=== PATIENT | female | born 1955 | race Caucasian/White ===

== ENCOUNTER → 2016-07-11 | Outpatient (CLI) | payer OTHER | END | disposition home or self-care (01) | LOC: MW.CHOBGYN 15:42 | PROVIDERS: ATTEND Nurse Practitioner Women's Health | DX: Z78.9 Other specified health status (principal) | CPT/HCPCS: 36415; 82550 ==

== ENCOUNTER 2019-03-18 08:14 | Day surgery (SDC) | payer OTHER ==
[~2019-03-18 08:14] MED LIST: Lactated Ringers 1,000 ML IV SCH; Sodium Chloride 0.9% 10 ML SDV IV PRN; Sodium Chloride 0.9% 10 ML Syringe FLUSH PRN; Sodium Chloride 0.9% 2.5 ML Syringe FLUSH PRN
--- NOTE | 2019-03-18 09:21 | PCM.PREANE ---
Preanesthetic Assessment - Anesthesia/Transfusion/Family Hx Anesthesia History: Prior Anesthesia Without Reaction Family History of Anesthesia Reaction: No Transfusion History: No Prior Transfusion(s) - Review of Systems General: No Symptoms Pulmonary: No Symptoms (uses cpap nightly 6+ hour/night) Cardiovascular: No Symptoms Gastrointestinal: No Symptoms Neurological: No Symptoms Other: Reports: None - Physical Assessment NPO Status Date: 03/17/19 NPO Status Time: 23:00 Vital Signs: Last Vital Signs Temp 97.0 F 03/18/19 08:30 Pulse 72 03/18/19 08:30 Resp 16 03/18/19 08:30 BP 119/57 L 03/18/19 08:30 Pulse Ox 95 03/18/19 08:30 Height: 5 ft 2 in Weight: 74.389 kg ASA Class: 2 Mental Status: Alert & Oriented x3 Airway Class: Mallampati = 2 Dentition: Reports: Normal Dentition ROM/Head Extension: Full Lungs: Normal Respiratory Effort Cardiovascular: Regular Rate, Regular Rhythm - Allergies Allergies/Adverse Reactions: Allergies Allergy/AdvReac Type Severity Reaction Status Date / Time atropine Allergy Shortness Verified 03/13/19 09:14 of Breath ciprofloxacin [From Cipro] Allergy Stomach Verified 03/13/19 09:14 Upset erythromycin base Allergy Stomach Verified 03/13/19 09:14 Upset phenazopyridine Allergy Abdominal Verified 03/13/19 12:44 [From Pyridium] Pain - Blood Blood Available: No - Anesthesia Plan Pre-Op Medication Ordered: None - Acknowledgements Pt an Appropriate Candidate for the Planned Anesthesia: Yes Alternatives and Risks of Anesthesia Discussed w Pt/Guardian: Yes Pt/Guardian Understands and Agrees with Anesthesia Plan: Yes PreAnesthesia Questionnaire HEENT History: Reports: Sinusitis, Other (See Below) Other HEENT History: wears glasses Cardiovascular History: Reports: High Cholesterol, Hypertension Respiratory History: Reports: Sleep Apnea Other Respiratory History: uses CPAP Gastrointestinal History: Reports: Colon Polyp, GERD, Helicobacter Pylori, Hiatal Hernia, Other (See Below) Other Gastrointestinal History: hx gastric ulcer as a teenager Genitourinary History: Reports: None 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: Musculoskeletal History: Reports: Osteoarthritis Neurological History: Reports: None Psychiatric History: Reports: Anxiety, Depression Endocrine/Metabolic History: Reports: Diabetes, Type II Hematologic History: Reports: None Immunologic History: Reports: None Oncologic (Cancer) History: Reports: None Dermatologic History: Reports: None - Past Surgical History Head Surgeries/Procedures: Reports: None HEENT Surgical History: Reports: Adenoidectomy, Tonsillectomy Cardiovascular Surgical History: Reports: None Respiratory Surgical History: Reports: None GI Surgical History: Reports: Appendectomy, Cholecystectomy, Colonoscopy, EGD Female Surgical History: Reports: Section, Hysterectomy, Tubal Ligation Endocrine Surgical History: Reports: None Neurological Surgical History: Reports: C-Spine Other Neurological Surgeries/Procedures: hx neck surgery Musculoskeletal Surgical History: Reports: Carpal Tunnel Oncologic Surgical History: Reports: None Dermatological Surgical History: Reports: None - SUBSTANCE USE Smoking Status *Q: Current Every Day Smoker Tobacco Use Within Last Twelve Months: Cigarettes Recreational Drug Use History: No - HOME MEDS Home Medications: Home Meds LORazepam 1 mg PO BEDTIME 03/15/16 [History] Lisinopril 40 mg PO DAILY 03/15/16 [History] Sertraline HCl 200 mg PO DAILY 03/15/16 [History] metFORMIN HCl [Metformin HCl] 500 mg PO PCDINNER 03/15/16 [History] Cinnamon Bark [Cinnamon] 2 tab PO DAILY 03/13/19 [History] Digestive 8/L.acidoph/Pectin [Digestive Enzymes Tablet] 1 tab PO DAILY 03/13/19 [History] Pre & Probiotic 1 tab PO DAILY 03/13/19 [History] Turmeric Root Extract [Turmeric] 500 mg PO DAILY 03/13/19 [History] - CURRENT (IN HOUSE) MEDS Current Meds: Current Medications Lactated Ringer's (Ringers, Lactated) 1,000 mls @ 125 mls/hr IV ASDIRECTED YOLANDA Last Admin: 03/18/19 08:57 Dose: 125 mls/hr Sodium Chloride (Saline Flush) 10 ml FLUSH ASDIRECTED PRN PRN Reason: Keep Vein Open Sodium Chloride (Saline Flush) 2.5 ml FLUSH ASDIRECTED PRN PRN Reason: Keep Vein Open Sodium Chloride (Saline Flush) 10 ml FLUSH ASDIRECTED PRN PRN Reason: Keep Vein Open Sodium Chloride (Saline Flush) 2.5 ml FLUSH ASDIRECTED PRN PRN Reason: Keep Vein Open Sodium Chloride (Normal Saline) 10 ml IV ASDIRECTED PRN PRN Reason: IV Use
[2019-03-18] MEDS ORDERED: Midazolam 1 MG/ML 2 ML SDV ONE (10:15)
[2019-03-18] MEDS ORDERED: Propofol 200 MG/20 ML SDV ONE (10:15)
--- NOTE | 2019-03-18 11:10 | PCM.OPNOTE ---
- General Post-Op/Procedure Note Date of Surgery/Procedure: 03/18/19 Operative Procedure(s): Diagnostic colonoscopy Findings: Trasnverse colon polyps x 2, sigmoid colon polyps x 3, grade IV hemorrhoids Pre Op Diagnosis: Colon polyps Post-Op Diagnosis: Transverse colon polyp x 2, sigmoid colon polyp x 3, grade IV hemorrhoids Anesthesia Technique: [facility] [place] Primary Surgeon: Nancy Blair Condition: Good
--- NOTE | 2019-03-18 11:34 | PCM.POSTAN ---
POST ANESTHESIA ASSESSMENT - MENTAL STATUS Mental Status: Alert, Oriented - VITAL SIGNS Vital Signs: Last Vital Signs Temp 97.0 F 03/18/19 08:30 Pulse 65 03/18/19 11:11 Resp 13 03/18/19 11:11 BP 113/58 L 03/18/19 11:11 Pulse Ox 93 L 03/18/19 11:11 - RESPIRATORY Respiratory Status: Respiratory Rate WNL, Airway Patent, O2 Saturation Stable - CARDIOVASCULAR CV Status: Pulse Rate WNL, Blood Pressure Stable - GASTROINTESTINAL GI Status: No Symptoms - POST OP HYDRATION Hydration Status: Adequate & Stable
--- NOTE | 2019-03-18 11:34 | PCM48HPAN ---
Post Anesthesia Note - EVALUATION WITHIN 48HRS OF ANESTHETIC Vital Signs in Normal Range: Yes Patient Participated in Evaluation: Yes Respiratory Function Stable: Yes Airway Patent: Yes Cardiovascular Function Stable: Yes Hydration Status Stable: Yes Pain Control Satisfactory: Yes Nausea and Vomiting Control Satisfactory: Yes Mental Status Recovered: Yes Vital Signs: Last Vital Signs Temp 97.0 F 03/18/19 08:30 Pulse 65 03/18/19 11:11 Resp 13 03/18/19 11:11 BP 113/58 L 03/18/19 11:11 Pulse Ox 93 L 03/18/19 11:11
[2019-03-18 11:35] VITALS: BP 110/60; PULSE 66
--- NOTE | 2019-03-18 11:56 | OR ---
SURGEON: NANCY BLAIR MD DATE OF PROCEDURE: 03/18/2019 PREOPERATIVE DIAGNOSIS: History of colon polyps. POSTOPERATIVE DIAGNOSES: 1. Transverse colon polyps x2. 2. Sigmoid colon polyps x3. 3. Grade 4 hemorrhoids. PROCEDURE PERFORMED: Diagnostic colonoscopy. PRIMARY SURGEON: Nancy Blair MD. ANESTHESIA: MAC. INSTRUMENT USED: Olympus colonoscope. EXTENT OF EXAM: To the cecum. PREPARATION: Good. LIMITATIONS: None. INDICATIONS FOR EXAMINATION: The patient is a 63-year-old female who presents for a 3-year followup colonoscopy due to a history of colon polyps. I explained the procedure; expected perioperative course; and the risks including bleeding, infection, or damage to surrounding structures including perforation. The patient verbalized understanding and wishes to proceed. PROCEDURE IN DETAIL: The patient was brought into the endoscopy suite and placed on the OR cart in a left lateral decubitus position. A time-out was completed verifying the patient's name, age, date of , allergies, and procedure to be performed. Monitored anesthesia care was induced and continuous oxygen was provided via nasal cannula throughout the procedure. After adequate sedation was achieved, a digital rectal exam was performed. This exam revealed grade 4 hemorrhoids. A well-lubricated colonoscope was inserted in the rectum and advanced under direct visualization to the level of the cecum. The cecum was identified by both visual and anatomic landmarks. A photograph was taken of the cecal cap; however, I was unable to retroflex the scope within the cecum due to looping of the scope more proximally. The scope was then fully withdrawn while examining the color, texture, anatomy, and integrity of the mucosa from the cecum to the anal canal. The patient was found to have five sessile polyps, two were in the transverse colon and three were in the sigmoid colon. These were all removed in piecemeal fashion using cold biopsy forceps. The scope was then brought into the rectum and retroflexed to allow visualization of the anal canal opening. This appeared normal and a photograph was taken. Scope was straightened out and fully withdrawn. The cecum to anus time was 18 minutes. The patient tolerated the procedure well and was transferred to the PACU in stable condition. ENDOSCOPIC DIAGNOSES: 1. Transverse colon polyps x2. 2. Sigmoid colon polyps x3. 3. Grade 4 hemorrhoids. RECOMMENDATIONS: Follow up in clinic in 2 weeks. GIANNA COWART /[id number]
== END 2019-03-18 11:45 | disposition home or self-care (01) ==
LOC: MW.SDS 08:14
PROVIDERS: ATTEND Surgery
DX: Z12.11 Encounter for screening for malignant neoplasm of colon (principal); D12.3 Benign neoplasm of transverse colon; D12.5 Benign neoplasm of sigmoid colon; K63.5 Polyp of colon; K64.3 Fourth degree hemorrhoids; K21.9 Gastro-esophageal reflux disease without esophagitis; F41.8 Other specified anxiety disorders; E78.00 Pure hypercholesterolemia, unspecified; I10 Essential (primary) hypertension; E11.9 Type 2 diabetes mellitus without complications; G47.30 Sleep apnea, unspecified; F17.210 Nicotine dependence, cigarettes, uncomplicated; Z99.89 Dependence on other enabling machines and devices; Z86.010 Personal history of colon polyps; Z87.19 Personal history of other diseases of the digestive system; Z88.1 Allergy status to other antibiotic agents; Z88.8 Allergy status to other drugs, medicaments and biological substances; Z79.84 Long term (current) use of oral hypoglycemic drugs; Z79.899 Other long term (current) drug therapy
CPT/HCPCS: 45380; J2250; J2704; J7120; 82962